=== PATIENT | female | born 1930 | race Caucasian/White ===

== ENCOUNTER 2016-11-18 06:00 | Day surgery (SDC) | payer MEDICARE, OTHER ==
[~2016-11-18 06:00] MED LIST: Lactated Ringers 1,000 ML IV ONE; Sodium Chloride 0.9% 1,000 ML IV SCH; Sodium Chloride 0.9% 5 ML Syringe FLUSH PRN; [UNRECOGNIZED DRUG - OTHER] EYERT SCH
[2016-11-18] MEDS: Cyclopentolate 1% Opth Soln 2 ML Bottle EYERT SCH ×3 (06:04→06:38)
[2016-11-18] MEDS: Phenylephrine 10% Ophth Soln 5 ML Bot EYERT SCH ×3 (06:14→06:49)
[2016-11-18] MEDS ORDERED: Balanced Salt Solution Ophth Irrig 15 ML Bottle EYERT ONE (07:48)
[2016-11-18] MEDS ORDERED: Water For Irrigation,Sterile 1,500 ML Container ONE (07:48)
[2016-11-18] MEDS ORDERED: Tetracaine 0.5% 2 ML Bottle EYEBOTH ONE (07:49)
[2016-11-18] MEDS ORDERED: EPINEPHrine 1:1000 1 MG/ML SDV ONE (07:49)
[2016-11-18] MEDS ORDERED: Balanced Salt Solution Plus Ophth Irrig 500 ML Bottle IOCULAR ONE (07:49)
[2016-11-18] MEDS ORDERED: Carbachol 0.01% Intraocular 1.5 ML Vial EYERT ONE (07:49)
[2016-11-18] MEDS ORDERED: Lidocaine 2% with EPINEPHrine 1:100,000 20 ML MDV INJECT ONE (07:50)
[2016-11-18] MEDS ORDERED: Lidocaine 1% 10 ML MDV INJECT ONE (07:50)
[2016-11-18] MEDS ORDERED: Dexamethasone/Neomycin/Polymyxin B Ophth Oint 3.5 GM Tube EYERT ONE (07:50)
[2016-11-18] MEDS ORDERED: Hyaluronate Sodium 1% 0.85 ML Syringe IOCULAR ONE (07:51)
[2016-11-18 08:22] VITALS: BP 146/55
--- NOTE | 2016-11-18 09:44 | PROC ---
DATE OF PROCEDURE: PHYSICIAN: Kaveh De Paz MD PRE-PROCEDURE DIAGNOSIS: Cataract, right eye. POST-PROCEDURE DIAGNOSIS: Cataract, right eye. PROCEDURE PERFORMED: Phacoemulsification with posterior chamber lens insertion, right eye. FINDINGS: The patient was taken to the operating room where appropriate anesthesia, sedation and monitoring were provided. A retrobulbar block was given on the right side. The eye was massaged and was found to be appropriately soft. The eye and eyelids were then prepped and draped in the usual sterile manner. A lid speculum was placed. A micro sharp blade was used to enter the anterior chamber inside the limbus superior-temporally. Xylocaine was irrigated into the eye at this site. Healon was irrigated into the eye through this site. Then using a 2.85 mm corneal blade an entry was made into the anterior chamber just inside the limbus temporally. Healon was again irrigated into the eye. Then using a cystitome, the anterior capsulorrhexis was created. The lens nucleus was hydrodissected using a 27 gauge cannula and balanced salt solution. The phacoemulsification unit was introduced through the temporal site and the Kevon spatula through the superior temporal site. In so doing, the lens nucleus was phacoemulsified. The cortical fragments of the lens were removed using the irrigation aspiration unit. The posterior capsule was polished. Healon was irrigated into the eye. The posterior chamber lens was inserted and rotated into position inside the capsular bag. The Healon was irrigated out of the eye. Miostat was irrigated into the eye and the pupil rounded nicely. A single interrupted 10-0 Nylon suture was placed through the temporal corneal incision site. Balanced salt solution was irrigated into the eye. The wound was tested and found to be tight. Maxitrol ointment was placed into the patient's right eye. The eyelids were closed and an eye patch and le shield were placed. The patient left the operating room in good condition. /[id number]/MODL
== END 2016-11-18 09:02 | disposition home or self-care (01) ==
LOC: KA.SDS 06:00
PROVIDERS: ATTEND Ophthalmology
DX: H26.9 Unspecified cataract (principal); I10 Essential (primary) hypertension; E78.00 Pure hypercholesterolemia, unspecified; E03.9 Hypothyroidism, unspecified; E11.9 Type 2 diabetes mellitus without complications; Z79.82 Long term (current) use of aspirin; Z79.899 Other long term (current) drug therapy; Z90.49 Acquired absence of other specified parts of digestive tract; Z96.653 Presence of artificial knee joint, bilateral
CPT/HCPCS: 00142; 66984; 82962; 93005; A9270; C1780; J0171; J7030

== ENCOUNTER 2018-09-19 21:11 | Emergency (ER) | payer MEDICARE, OTHER ==
--- NOTE | 2018-09-19 21:45 | EDM.PDOC ---
ED HPI GENERAL MEDICAL PROBLEM - General Chief Complaint: General Stated Complaint: KNEE PAIN Time Seen by Provider: 09/19/18 21:33 Source of Information: Reports: Patient, Significant Other History Limitations: Reports: No Limitations - History of Present Illness INITIAL COMMENTS - FREE TEXT/NARRATIVE: Patient presents with lateral left knee pain that started 5 hours ago while she was watching TV. She describes it as a stabbing pain that lasts only a few seconds. She has had similar pain before but less frequently. She denies any injury. Standing or walking actually feels better. No pain with ROM. 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 Her is concerned about a blood clot since he had one in the past. - Related Data Allergies Allergy/AdvReac Type Severity Reaction Status Date / Time No Known Drug Allergies Allergy NKDA Verified 09/19/18 21:16 Home Meds: Home Meds Aspirin [Halfprin] 81 mg PO BRK 11/17/16 [History] Calcium Carbonate/Vitamin D3 [Calcium 600 + D3 Softgel] 1 each PO DAILY [History] Cyclobenzaprine [Flexeril] 10 mg PO DAILY PRN 11/17/16 [History] Diltiazem HCl [Diltiazem 24Hr ER] 240 mg PO DAILY 11/17/16 [History] Hydroxychloroquine [Plaquenil] 200 mg PO BID 11/17/16 [History] Levothyroxine 150 mcg PO ACBREAKFAST 11/17/16 [History] Losartan/Hydrochlorothiazide [Losartan-HCTZ 100-12.5 MG] 0.5 each PO DAILY 11/17 [History] Lutein/Minerals/Vit A,C & E [Ocuvite] 1 tab PO BID 11/17/16 [History] Methotrexate 7 tab PO Q7D 11/17/16 [History] Vit/Iron Fumarate/FA [ Tablet] 1 each PO DAILY 11/17/16 [ History] Rup Rub 1 applic TOP TID PRN 11/17/16 [History] Vitamin B Complex [B Complex] 1 each PO DAILY 11/17/16 [History] glipiZIDE [Glipizide ER] 1 - 2 tab PO DAILY 11/17/16 [History] metFORMIN HCl [Metformin HCl] 1,000 mg PO BID 11/17/16 [History] traMADol [Ultram] 50 mg PO Q8H PRN 11/17/16 [History] Social & Family History - Caffeine Use Caffeine Use: Reports: Coffee ED ROS GENERAL - Review of Systems Review Of Systems: See Below Constitutional: Denies: Fever, Chills, Malaise, Weakness HEENT: Reports: No Symptoms Respiratory: Denies: Shortness of Breath, Cough Cardiovascular: Denies: Chest Pain, Lightheadedness, Syncope Endocrine: Reports: No Symptoms GI/Abdominal: Reports: No Symptoms : Reports: No Symptoms Musculoskeletal: Reports: Back Pain (chronic). Denies: Neck Pain, Shoulder Pain , Arm Pain Skin: Denies: Cyanosis, Jaundice, Mottled, Pallor, Diaphoresis Neurological: Denies: Confusion, Seizure, Syncope, Trouble Speaking Psychiatric: Denies: Agitation, Anxiety, Confusion ED EXAM, GENERAL - Physical Exam Exam: See Below Exam Limited By: No Limitations General Appearance: Alert, WD/WN, No Apparent Distress Eye Exam: Bilateral Eye: EOMI, Normal Inspection, PERRL Ears: Normal External Exam, Hearing Grossly Normal Nose: Normal Inspection, No Blood Throat/Mouth: Normal Inspection, Normal Lips, Normal Voice, No Airway Compromise Head: Atraumatic, Normocephalic Neck: Full Range of Motion Respiratory/Chest: No Respiratory Distress, Lungs Clear, Normal Breath Sounds Cardiovascular: Regular Rate, Rhythm, No JVD, No Murmur Extremities: Normal Range of Motion, No Pedal Edema, Normal Capillary Refill, Other (No pain with ROM, varus or valgus stress. Some non-specific tenderness at superolateral knee to palpation. No calf swelling or tenderness.). No: Joint Swelling, Arely's Sign, Increased Warmth, Mottled, Pallor, Redness Neurological: Alert, Oriented, Normal Cognition, No Motor/Sensory Deficits Psychiatric: Normal Affect, Normal Mood Skin Exam: Warm, Dry, Intact, Normal Color, No Rash Course - Vital Signs Last Recorded V/S: Last Vital Signs Temp 97.7 F 09/19/18 21:19 Pulse 88 09/19/18 21:19 Resp 20 09/19/18 21:19 BP 179/76 H 09/19/18 21: Pulse Ox 97 09/19/18 21:19 - Orders/Labs/Meds Orders: Active Orders 24 hr Category Date Time Status Knee 3V Lt [CR] Stat Exams 09/19/18 21:23 Ordered - Re-Assessments/Exams Free Text/Narrative Re-Assessment/Exam: 09/19/18 22:13 We discussed her BP which is elevated tonight. She isn't surprised and attributes it to anxiety about coming to the ER along with recently cutting her dose of Losartan in half because it was causing episodes of low BP. She wants to go home and take the other half of her dose and will follow up with her PCP tomorrow morning for recheck. Xrays show no fractures, malalignment, effusion or hardware problems. Discussed findings with patient and she is discharged to home in stable condition. Departure - Departure Time of Disposition: 22:10 Disposition: Home, Self-Care 01 Condition: Good Clinical Impression: Knee pain, left Qualifiers: Chronicity: unspecified Qualified Code(s): M25.562 - Pain in left knee - Discharge Information Referrals: Michelle Carrasco PA-C [Primary Care Provider] - Additional Instructions: 1. Continue your medications as needed for pain. 2. Follow up with your PCP tomorrow as scheduled. 3. Continue weightbearing if not painful or unstable. - My Orders Last 24 Hours: My Active Orders 09/19/18 21:23 Knee 3V Lt [CR] Stat - Assessment/Plan Last 24 Hours: My Active Orders 09/19/18 21:23 Knee 3V Lt [CR] Stat
[2018-09-19 22:13] VITALS: BP 194/84
--- NOTE | 2018-09-20 08:11 | CR ---
[id number] RAD/RAD Knee Left 3V Exam: RAD Knee Left 3V Indication:LEFT KNEE PAIN Comparison: No prior imaging for comparison. Discussion: Total knee arthroplasty. Prosthesis components are in normal alignment. No periprosthetic fracture. Possible small joint effusion with other debris/loose bodies or calcified synovitis in the suprapatellar recess. Bone mineralization is diffusely decreased throughout the knee. Impression: As above. Chip Menjivar MD 09/20/18 0811 Thank you for allowing us to participate in the care of your patient.
== END 2018-09-19 22:20 | disposition home or self-care (01) ==
LOC: KA.ED 21:11
DX: M25.562 Pain in left knee (principal); I10 Essential (primary) hypertension; E11.9 Type 2 diabetes mellitus without complications; E03.9 Hypothyroidism, unspecified; Z79.82 Long term (current) use of aspirin; Z79.899 Other long term (current) drug therapy; Z79.84 Long term (current) use of oral hypoglycemic drugs; Z90.49 Acquired absence of other specified parts of digestive tract
CPT/HCPCS: 73562-LT; 99283

== ENCOUNTER 2019-02-20 00:25 | Emergency (ER) | payer MEDICARE, OTHER ==
[2019-02-20] MEDS: Aspirin 81 MG Tab.Chew PO ONE (00:45)
--- NOTE | 2019-02-20 00:45 | EDM.PDOC ---
ED HPI GENERAL MEDICAL PROBLEM - General Stated Complaint: CHEST PAIN Time Seen by Provider: 02/20/19 00:30 Source of Information: Reports: Patient, Family History Limitations: Reports: No Limitations - History of Present Illness INITIAL COMMENTS - FREE TEXT/NARRATIVE: Patient presents with chest tightness that started about 2330. She often gets GERD and recently started a treatment regimen for H. pylori. She thought this was possibly the cause of her pain but it didn't resolve like usual so she came in. She denies any history of CO or other heart disease. She does have diabetes. CHEST Pain Score (Numeric/FACES): 6 - Related Data Allergies Allergy/AdvReac Type Severity Reaction Status Date / Time No Known Drug Allergies Allergy NKDA Verified 02/20/19 00:40 Home Meds: Home Meds Aspirin [Halfprin] 81 mg PO BRK 11/17/16 [History] Calcium Carbonate/Vitamin D3 [Calcium 600 + D3 Softgel] 1 each PO DAILY [History] Hydroxychloroquine [Plaquenil] 200 mg PO BID 11/17/16 [History] Levothyroxine 150 mcg PO ACBREAKFAST 11/17/16 [History] Losartan/Hydrochlorothiazide [Losartan-HCTZ 100-12.5 MG] 0.5 each PO DAILY 11/17 [History] Lutein/Minerals/Vit A,C & E [Ocuvite] 1 tab PO BID 11/17/16 [History] Methotrexate 8 tab PO Q7D 11/17/16 [History] Vit/Iron Fumarate/FA [ Tablet] 1 each PO DAILY 11/17/16 [ History] Rup Rub 1 applic TOP TID PRN 11/17/16 [History] Vitamin B Complex [B Complex] 1 each PO DAILY 11/17/16 [History] dilTIAZem HCl [Diltiazem 24Hr ER] 240 mg PO DAILY 11/17/16 [History] glipiZIDE [Glipizide ER] 1 - 2 tab PO DAILY 11/17/16 [History] metFORMIN HCl [Metformin HCl] 1,000 mg PO BID 11/17/16 [History] traMADol [Ultram] 50 mg PO Q8H PRN 11/17/16 [History] Amoxicillin 500 mg PO DAILY 02/20/19 [History] Azithromycin [Zithromax] 250 mg PO DAILY 02/20/19 [History] Escitalopram [Lexapro] 10 mg PO DAILY 02/20/19 [History] Omeprazole 20 mg PO DAILY 02/20/19 [History] Past Medical History HEENT History: Reports: Cataract, Other (See Below) Other HEENT History: glasses Cardiovascular History: Reports: Hypertension Gastrointestinal History: Reports: Diverticulosis [facility] [employer] History: Reports: Musculoskeletal History: Reports: Arthritis, Osteoporosis, RA Endocrine/Metabolic History: Reports: Diabetes, Type II, Hypothyroidism Hematologic History: Reports: Iron Deficiency Oncologic (Cancer) History: Reports: Squamous Cell Carcinoma - Infectious Disease History Infectious Disease History: Reports: Chicken Pox, Measles, Rubella - Past Surgical History Cardiovascular Surgical History: Reports: None GI Surgical History: Reports: Cholecystectomy, Colonoscopy, EGD Neurological Surgical History: Reports: None Musculoskeletal Surgical History: Reports: Knee Replacement, Other (See Below) Other Musculoskeletal Surgeries/Procedures:: knee bilateral Social & Family History - Family History Family Medical History: Noncontributory - Caffeine Use Caffeine Use: Reports: Coffee ED ROS GENERAL - Review of Systems Review Of Systems: See Below Constitutional: Denies: Fever, Weakness, Diaphoresis HEENT: Denies: Throat Pain Respiratory: Denies: Shortness of Breath, Cough Cardiovascular: Reports: Chest Pain. Denies: Lightheadedness, Syncope GI/Abdominal: Denies: Abdominal Pain, Diarrhea, Nausea, Vomiting : Reports: No Symptoms Musculoskeletal: Reports: Back Pain (chronic, arthritis). Denies: Neck Pain, Shoulder Pain, Arm Pain Skin: Denies: Cyanosis, Jaundice, Mottled, Pallor, Diaphoresis Neurological: Denies: Confusion, Dizziness, Headache, Seizure, Syncope, Trouble Speaking, Difficulty Walking Psychiatric: Denies: Agitation, Anxiety, Confusion ED EXAM, GENERAL - Physical Exam Exam: See Below Exam Limited By: No Limitations General Appearance: Alert, WD/WN, No Apparent Distress Eye Exam: Bilateral Eye: EOMI, Normal Inspection, PERRL Ears: Normal External Exam, Hearing Grossly Normal Nose: Normal Inspection, No Blood Throat/Mouth: Normal Inspection, Normal Lips, Normal Voice, No Airway Compromise Head: Atraumatic, Normocephalic Neck: Normal Inspection, Supple, Non-Tender, Full Range of Motion. No: Carotid Bruit Respiratory/Chest: No Respiratory Distress, Lungs Clear, Normal Breath Sounds, No Accessory Muscle Use Cardiovascular: Regular Rate, Rhythm, No Edema, No Gallop, No JVD, No Murmur Peripheral Pulses: 2+: Carotid (L), Carotid (R), Radial (L), Radial (R), Dorsalis Pedis (L), Dorsalis Pedis (R) GI/Abdominal: Normal Bowel Sounds, Soft, Non-Tender, No Organomegaly, No Distention, No Abnormal Bruit, No Mass Back Exam: Normal Inspection, Full Range of Motion. No: CVA Tenderness (L), CVA Tenderness (R) Extremities: Normal Inspection, Normal Range of Motion, Non-Tender, No Pedal Edema Neurological: Alert, Oriented, Normal Cognition, No Motor/Sensory Deficits Psychiatric: Normal Affect, Normal Mood Skin Exam: Warm, Dry, Intact, Normal Color, No Rash Course - Vital Signs Last Recorded V/S: Last Vital Signs Temp 98.7 F 02/20/19 00:35 Pulse 68 02/20/19 06:45 Resp 18 02/20/19 06:45 BP 137/57 L 02/20/19 06:45 Pulse Ox 100 02/20/19 00:35 - Orders/Labs/Meds Orders: Active Orders 24 hr Category Date Time Status EKG Documentation Completion [RC] ASDIRECTED Care 02/20/19 00:41 Active Peripheral IV Care [RC] . DIRECTED Care 02/20/19 01:05 Active Chest 2V [CR] Stat Exams 02/20/19 00:40 Taken INR,PT,PROTHROMBIN TIME [COAG] Stat Lab 02/20/19 08:41 Ordered PTT,PARTIAL THROMBOPLSTIN TIME [COAG] Stat Lab 02/20/19 08:41 Ordered Heparin Sodium/D5W Med 02/20/19 08:30 Ordered 25,000 units in 250 ml IV TITRATE Heparin Sodium/D5W Med 02/20/19 08:45 Ordered 25,000 units in 250 ml IV TITRATE Nitroglycerin 25 MG in D5W @ 10 MCG/MIN (250ml) Premix Med 02/20/19 08:30 Ordered Nitroglycerin/D5W [Nitroglycerin 50 MG/D5W 250 ML] 50 mg in 250 ml IV TITRATE Sodium Chloride 0.9% [Saline Flush] Med 02/20/19 01:05 Active 10 ml FLUSH Q8HR PRN Peripheral IV Insertion Adult [OM.PC] Routine Oth 02/20/19 01:05 Ordered EKG 12 Lead [EK] Routine Ther 02/20/19 00:40 Ordered Medication Orders Heparin Sodium/Dextrose () 25,000 units in 250 mls @ 9.417 mls/hr IV TITRATE LIZ; Protocol Nitroglycerin/Dextrose (Nitroglycerin 50 Mg/D5w 250 Ml) 50 mg in 250 mls @ 3 mls/hr IV TITRATE LIZ Heparin Sodium/Dextrose () 25,000 units in 250 mls @ 11.771 mls/hr IV TITRATE LIZ; Protocol Sodium Chloride (Saline Flush) 10 ml FLUSH Q8HR PRN PRN Reason: keep vein open Last Admin: 02/20/19 01:08 Dose: 10 ml Labs: Laboratory Tests 02/20/19 02/20/19 02/20/19 Range/Units 01:02 01:02 06:50 WBC 6.35 (5.00-10.00) 10^3/uL RBC 3.66 L (3.80-5.50) 10^6/uL Hgb 11.5 L (12.0-16.0) g/dL Hct 34.9 L (37.0-47.0) % MCV 95.4 H (82.0-92.0) fL MCH 31.4 H (27.0-31.0) pg MCHC 33.0 (32.0-36.0) g/dL RDW 15.7 H (11.5-14.5) % Plt Count 293 (150-400) 10^3/uL MPV 9.7 (7.4-10.4) fL Immature Gran % (Auto) 0.5 (0.0-5.0) % Neut % (Auto) 68.0 (50.0-70.0) % Lymph % (Auto) 19.5 L (20.0-40.0) % Adams % (Auto) 9.0 H (2.0-8.0) % Eos % (Auto) 2.2 (1.0-3.0) % Baso % (Auto) 0.8 (0.0-1.0) % Immature Gran # (Auto) 0.03 (0.00-0.50) 10^3/uL Neut # (Auto) 4.32 (2.50-7.00) 10^3/uL Lymph # (Auto) 1.24 (1.00-4.00) 10^3/uL Adams # (Auto) 0.57 (0.10-0.80) 10^3/uL Eos # (Auto) 0.14 (0.10-0.30) 10^3/uL Baso # (Auto) 0.05 (0.00-0.10) 10^3/uL Sodium 140 (136-145) mmol/L Potassium 3.8 (3.3-5.3) mmol/L Chloride 102 (98-115) mmol/L Carbon Dioxide 26.3 (21.0-32.0) mmol/L Anion Gap 15.5 H (5-15) mmol/L BUN 15 (6-25) mg/dL Creatinine 0.58 (0.51-1.17) mg/dL Est Cr Clr Drug Dosing 57.59 mL/min Estimated GFR (MDRD) > 60 mL/min Glucose 128 H (75 - 99) mg/dL Calcium 8.5 L (8.7-10.3) mg/dL Troponin I < 0.04 0.11 H* (0.00-0.070) ng/mL Meds: Medications Generic Name Dose Route Start Last Admin Trade Name Freq PRN Reason Stop Dose Admin Heparin Sodium/Dextrose 25,000 units in 250 mls @ 9.417 mls/hr 02/20/19 08:30 IV TITRATE LIZ Protocol 12 UNITS/KG/HR Nitroglycerin/Dextrose 50 mg in 250 mls @ 3 mls/hr 02/20/19 08:30 Nitroglycerin 50 Mg/D5w 250 Ml IV TITRATE LIZ 10 MCG/MIN Heparin Sodium/Dextrose 25,000 units in 250 mls @ 11.771 mls/hr 02/20/19 08: 45 IV TITRATE LIZ Protocol 15 UNITS/KG/HR Sodium Chloride 10 ml 02/20/19 01:05 02/20/19 01:08 Saline Flush FLUSH 10 ml Q8HR PRN Administration keep vein open Discontinued Medications Generic Name Dose Route Start Last Admin Trade Name Freq PRN Reason Stop Dose Admin Al Hydroxide/Mg Hydroxide 45 ml 02/20/19 01:13 02/20/19 01:31 Gi Cocktail PO 02/20/19 01:14 45 ml ONETIME ONE Administration Aspirin 324 mg 02/20/19 00:40 02/20/19 00:45 Aspirin PO 02/20/19 00:41 324 mg ONETIME ONE Administration Aspirin Confirm 02/20/19 00:43 02/20/19 00:54 Aspirin Administered 02/20/19 00:44 Not Given Dose 324 mg .ROUTE .STK-MED ONE Sodium Chloride Confirm 02/20/19 08:56 Normal Saline Administered 02/20/19 08:57 Dose 1,000 mls @ as directed .ROUTE .STK-MED ONE Nitroglycerin 1 gm 02/20/19 00:40 02/20/19 00:50 Nitro-Bid 2% TOP 02/20/19 00:41 1 gm ONETIME ONE Administration Nitroglycerin Confirm 02/20/19 00:43 02/20/19 00:54 Nitro-Bid 2% Administered 02/20/19 00:44 Not Given Dose 1 gm .ROUTE .STK-MED ONE Tramadol HCl 50 mg 02/20/19 07:46 02/20/19 08:01 Ultram PO 02/20/19 07:47 50 mg ONETIME ONE Administration - Re-Assessments/Exams Free Text/Narrative Re-Assessment/Exam: 02/20/19 01:08 Aspirin and Nitro paste given right away. Chest heaviness improved significantly but not completely resolved. 02/20/19 02:22 The nitro paste help a little but the GI cocktail helped more. Patient is feeling significantly improved but still feels a very slight chest pressure. EKG, CXR and troponin are normal. Will keep for serial troponin and discharge to home if negative and patient stable. 02/20/19 08:39 Second troponin was 0.11. Patient was fairly comfortable through the night but still has the mild chest pressure. Discussed case with Dr. Serra (card) and Dr. Reyes (hosp) at [facility] who accepted for transfer, recommending heparin drip and nitro drip. She will likely go to [facility] tomorrow and they will evaluate and monitor today. Departure - Departure Time of Disposition: 08:38 Disposition: DC/Tfer to Acute Hospital 02 Reason for Transfer *Q: Other Condition: Good Clinical Impression: Acute coronary syndrome, NSTEMI (non-ST elevated myocardial infarction) Chest pain Qualifiers: Chest pain type: unspecified Qualified Code(s): R07.9 - Chest pain, unspecified Referrals: Michelle Carrasco PA-C [Primary Care Provider] - Forms: ED Department Discharge Additional Instructions: 1. Follow up with your PCP on Thursday for recheck or if worsening return to ER. - My Orders Last 24 Hours: My Active Orders 02/20/19 00:40 Chest 2V [CR] Stat EKG 12 Lead [EK] Routine 02/20/19 00:41 EKG Documentation Completion [RC] ASDIRECTED 02/20/19 01:05 Peripheral IV Care [RC] . DIRECTED Sodium Chloride 0.9% [Saline Flush] 10 ml FLUSH Q8HR PRN Peripheral IV Insertion Adult [OM.PC] Routine 02/20/19 08:30 Heparin Sodium/D5W 25,000 units in 250 ml IV TITRATE Nitroglycerin 25 MG in D5W @ 10 MCG/MIN (250ml) Premix Nitroglycerin/D5W [ Nitroglycerin 50 MG/D5W 250 ML] 50 mg in 250 ml IV TITRATE 02/20/19 08:41 INR,PT,PROTHROMBIN TIME [COAG] Stat PTT,PARTIAL THROMBOPLSTIN TIME [COAG] Stat 02/20/19 08:45 Heparin Sodium/D5W 25,000 units in 250 ml IV TITRATE - Assessment/Plan Last 24 Hours: My Active Orders 02/20/19 00:40 Chest 2V [CR] Stat EKG 12 Lead [EK] Routine 02/20/19 00:41 EKG Documentation Completion [RC] ASDIRECTED 02/20/19 01:05 Peripheral IV Care [RC] . DIRECTED Sodium Chloride 0.9% [Saline Flush] 10 ml FLUSH Q8HR PRN Peripheral IV Insertion Adult [OM.PC] Routine 02/20/19 08:30 Heparin Sodium/D5W 25,000 units in 250 ml IV TITRATE Nitroglycerin 25 MG in D5W @ 10 MCG/MIN (250ml) Premix Nitroglycerin/D5W [ Nitroglycerin 50 MG/D5W 250 ML] 50 mg in 250 ml IV TITRATE 02/20/19 08:41 INR,PT,PROTHROMBIN TIME [COAG] Stat PTT,PARTIAL THROMBOPLSTIN TIME [COAG] Stat 02/20/19 08:45 Heparin Sodium/D5W 25,000 units in 250 ml IV TITRATE
[2019-02-20] MEDS: Nitroglycerin 2% Oint 1 GM UD Packet TOP ONE (00:50)
[2019-02-20] MEDS: Nitroglycerin 2% Oint 1 GM UD Packet ONE (00:54)
[2019-02-20] MEDS: Aspirin 81 MG Tab.Chew ONE (00:54)
[2019-02-20] MEDS: Sodium Chloride 0.9% 10 ML Syringe FLUSH PRN (01:08)
[2019-02-20] MEDS: GI Cocktail 45 ML BOTTLE PO ONE (01:31)
[2019-02-20 01:42] LABS: ANION GAP 15.5 mmol/L (5-15); CHLORIDE,CL 102 mmol/L (98-115); SODIUM,NA 140 mmol/L (136-145)
[2019-02-20] MEDS: traMADol 50 MG Tab PO ONE (08:01)
[2019-02-20 08:22] VITALS: BP 137/57
[2019-02-20] MEDS ORDERED: Heparin Sodium/D5W 25,000 UNITS/250 ML BAG IV SCH (08:30)
[2019-02-20] MEDS ORDERED: Sodium Chloride 0.9% 1,000 ML IV SCH (09:00)
[2019-02-20] MEDS: Heparin Sodium/D5W 25,000 UNITS/250 ML BAG IV SCH (09:10)
--- NOTE | 2019-02-20 10:28 | CR ---
[id number] RAD/RAD Chest PA And Lateral EXAM: FRONTAL AND LATERAL CHEST INDICATION: Chest pain. COMPARISON: February 15, 2019. DISCUSSION: Chronic obstructive pulmonary disease. Mild linear atelectasis or scarring the lung bases. There is mild prominence of the right hilum which may relate to incomplete inspiratory effort. Follow-up examination may be useful to further exclude other underlying pathology. No infiltrates are identified. Borderline central vascular congestion with normal heart size. IMPRESSION: 1. The heart is normal in size, but there is borderline central vascular congestion. 2. Mild bibasilar scarring or atelectasis. Andrea Ba MD 02/20/19 1027 Thank you for allowing us to participate in the care of your patient.
[2019-02-21] MEDS: Sodium Chloride 0.9% 1,000 ML ONE (12:16)
== END 2019-02-20 09:30 ==
LOC: KA.ED 00:25
DX: I21.4 Non-ST elevation (NSTEMI) myocardial infarction (principal); I24.9 Acute ischemic heart disease, unspecified; I10 Essential (primary) hypertension; M06.9 Rheumatoid arthritis, unspecified; E11.9 Type 2 diabetes mellitus without complications; M19.90 Unspecified osteoarthritis, unspecified site; Z90.49 Acquired absence of other specified parts of digestive tract; Z79.84 Long term (current) use of oral hypoglycemic drugs; Z79.899 Other long term (current) drug therapy; Z79.82 Long term (current) use of aspirin
CPT/HCPCS: 36415; 71046; 80048; 84484; 85025; 85610; 85730; 93005; 96365; 96368; 99285-25; A9270-GY; J1644

== ENCOUNTER 2019-05-15 14:16 | Emergency (ER) | payer MEDICARE, OTHER ==
[2019-05-15 14:38] VITALS: BP 145/65
[2019-05-15] MEDS ORDERED: cefTRIAXone 1 GM Vial IM ONE (14:41)
[2019-05-15] MEDS ORDERED: Lidocaine 1% 20 ML MDV ONE (14:44)
[2019-05-15] MEDS ORDERED: Sulfamethoxazole/Trimethoprim 800-160 MG Tab PO ONE ×2 (14:46→14:53)
--- NOTE | 2019-05-15 15:00 | EDM.PDOC ---
ED HPI GENERAL MEDICAL PROBLEM - General Chief Complaint: Bite:Animal, Insect Stated Complaint: INSCENT BITE?? Time Seen by Provider: 05/15/19 14:25 Source of Information: Reports: Patient, Family (dtr) History Limitations: Reports: No Limitations - History of Present Illness INITIAL COMMENTS - FREE TEXT/NARRATIVE: Patient presents with redness and swelling of right cheek. She says she first noticed this 4 days ago but it is noticeably worse today. She had been in the garden but isn't aware of any insect bites although very possible. At first she wondered if it could be from her teeth or gums but says they aren't painful. No fever. Treatments PEACE OFFICER: Reports: Other (see below) Other Treatments PEACE OFFICER: Tramadol - Related Data Allergies Allergy/AdvReac Type Severity Reaction Status Date / Time No Known Drug Allergies Allergy NKDA Verified 05/15/19 14:40 Home Meds: Home Meds Aspirin [Halfprin] 81 mg PO BRK 11/17/16 [History] Calcium Carbonate/Vitamin D3 [Calcium 600 + D3 Softgel] 1 each PO DAILY [History] Hydroxychloroquine [Plaquenil] 200 mg PO BID 11/17/16 [History] Levothyroxine 150 mcg PO ACBREAKFAST 11/17/16 [History] Losartan/Hydrochlorothiazide [Losartan-HCTZ 100-12.5 MG] 0.5 each PO DAILY 11/17 [History] Lutein/Minerals/Vit A,C & E [Ocuvite] 1 tab PO BID 11/17/16 [History] Methotrexate 8 tab PO Q7D 11/17/16 [History] Vit/Iron Fumarate/FA [ Tablet] 1 each PO DAILY 11/17/16 [ History] Rup Rub 1 applic TOP TID PRN 11/17/16 [History] Vitamin B Complex [B Complex] 1 each PO DAILY 11/17/16 [History] dilTIAZem HCl [Diltiazem 24Hr ER] 240 mg PO DAILY 11/17/16 [History] glipiZIDE [Glipizide ER] 1 - 2 tab PO DAILY 11/17/16 [History] metFORMIN HCl [Metformin HCl] 1,000 mg PO BID 11/17/16 [History] traMADol [Ultram] 50 mg PO Q8H PRN 11/17/16 [History] Amoxicillin 500 mg PO DAILY 02/20/19 [History] Azithromycin [Zithromax] 250 mg PO DAILY 02/20/19 [History] Escitalopram [Lexapro] 10 mg PO DAILY 02/20/19 [History] Omeprazole 20 mg PO DAILY 02/20/19 [History] Past Medical History HEENT History: Reports: Cataract, Other (See Below) Other HEENT History: glasses Cardiovascular History: Reports: Hypertension Gastrointestinal History: Reports: Diverticulosis LOGISTICS LEAD History: Reports: Musculoskeletal History: Reports: Arthritis, Osteoporosis, RA Endocrine/Metabolic History: Reports: Diabetes, Type II, Hypothyroidism Hematologic History: Reports: Iron Deficiency Oncologic (Cancer) History: Reports: Squamous Cell Carcinoma Dermatologic History: Reports: Cellulitis Other Dermatologic History: cellulitis R cheek 05/2019 - Infectious Disease History Infectious Disease History: Reports: Chicken Pox, Measles, Rubella - Past Surgical History Cardiovascular Surgical History: Reports: None GI Surgical History: Reports: Cholecystectomy, Colonoscopy, EGD Neurological Surgical History: Reports: None Musculoskeletal Surgical History: Reports: Knee Replacement, Other (See Below) Other Musculoskeletal Surgeries/Procedures:: knee bilateral Social & Family History - Family History Family Medical History: Noncontributory - Caffeine Use Caffeine Use: Reports: Coffee ED ROS GENERAL - Review of Systems Review Of Systems: See Below Constitutional: Denies: Fever, Chills, Malaise, Weakness HEENT: Denies: Dental Pain, Ear Pain, Sinus Problem Respiratory: Denies: Shortness of Breath, Cough Cardiovascular: Denies: Chest Pain, Lightheadedness, Syncope Endocrine: Denies: Fatigue GI/Abdominal: Denies: Abdominal Pain, Diarrhea, Vomiting : Reports: Dysuria (she said just very mild for a couple days). Denies: Flank Pain Musculoskeletal: Reports: No Symptoms Skin: Denies: Cyanosis, Jaundice, Mottled, Pallor, Diaphoresis Neurological: Denies: Confusion, Dizziness, Seizure, Syncope, Trouble Speaking, Difficulty Walking Psychiatric: Denies: Agitation, Anxiety, Confusion ED EXAM, ANIMAL BITE - Physical Exam Exam: See Below Exam Limited By: No Limitations General Appearance: Alert, WD/WN, No Apparent Distress Ears: Normal External Exam, Normal Canal, Hearing Grossly Normal, Normal TMs Nose: Normal Inspection, No Blood Throat/Mouth: Normal Lips, Normal Gums, Normal Oropharynx, Normal Voice, No Airway Compromise, Other (Palpation of right cheek, inside and outside, tender but no erythema or tenderness of teeth or gums, upper or lower.) Head: Atraumatic, Normocephalic, Facial Swelling (right cheek erythema, swelling from mid-cheek (at level of nostril opening) extending down past mandible into right lateral neck, anteriorly to within 1 cm of nose and posterior to within 4-5 cm of anterior right ear. There is induration in the central 2/3 of this region down to mandible but not the neck. A picture is taken.) Neck: Supple, Non-Tender, Full Range of Motion, Other (erythema and mild swelling right-anterior neck from midline to below anterior ear. No induration. ) Respiratory/Chest: No Respiratory Distress, Lungs Clear, Normal Breath Sounds, No Accessory Muscle Use Cardiovascular: Regular Rate, Rhythm, No Murmur GI/Abdominal: Normal Bowel Sounds, Soft, Non-Tender, No Organomegaly, No Distention Back Exam: Normal Inspection, Full Range of Motion. No: CVA Tenderness (L), CVA Tenderness (R) Extremities: Normal Inspection, Normal Range of Motion, Non-Tender, No Pedal Edema Neurological: Alert, Oriented, Normal Cognition, No Motor/Sensory Deficits Psychiatric: Normal Affect, Normal Mood Skin Exam: Normal Color, Warm/Dry Lymphadenopathy: Bilateral: No Adenopathy Course - Vital Signs Last Recorded V/S: Last Vital Signs Temp 97.5 F 05/15/19 14:28 Pulse 72 05/15/19 14:28 Resp 20 05/15/19 14:28 BP 145/65 H 05/15/19 14:28 Pulse Ox 97 05/15/19 14:28 - Orders/Labs/Meds Meds: Medications Discontinued Medications Generic Name Dose Route Start Last Admin Trade Name Charanjit PRN Reason Stop Dose Admin Ceftriaxone Sodium 1 gm 05/15/19 14:41 05/15/19 14:51 Rocephin IM 05/15/19 14:42 1 gm ONETIME ONE Administration Lidocaine HCl Confirm 05/15/19 14:44 05/15/19 14:54 Xylocaine 1% Administered 05/15/19 14:45 20 ml Dose Administration 20 ml .ROUTE .STK-MED ONE Trimethoprim/Sulfamethoxazole 1 tab 05/15/19 14:46 Septra Ds PO 05/15/19 14:47 ONETIME ONE Trimethoprim/Sulfamethoxazole 2 tab 05/15/19 14:53 Septra Ds PO 05/15/19 14:54 ONETIME ONE - Re-Assessments/Exams Free Text/Narrative Re-Assessment/Exam: 05/15/19 15:03 Discussed findings and treatment plan. Will cover for MSSA and MRSA. She has used Sulfa before without any problems and has no allergies to any antibiotics. I reviewed her last potassium from two months ago to see if she was borderline hyperkalemic before starting a sulfa but it was 3.8. Short course shouldn't be a concern with her Losartan. She will return tomorrow for a second injection of Rocephin and then begin Keflex on Thursday, possibly after seeing Michelle in clinic. The first doses of Rocephin and Bactrim were administered today in ER and doses for tomorrow of Bactrim were sent home with patient since it is a holiday for pharmacy. 05/15/19 15:25 I feel outpatient treatment for this should be very successful but if worsening can consider admission. She will recheck within 48 hours or sooner if any worsening. Patient discharged to home in stable condition. Departure - Departure Time of Disposition: 14:59 Disposition: Home, Self-Care 01 Condition: Good Clinical Impression: Cellulitis of external cheek, right - Discharge Information Instructions: Cellulitis, Adult, [id number] Referrals: Michelle Carrasco PA-C [Primary Care Provider] - Additional Instructions: 1. Drink plenty of water. 2. Take the antibiotics as directed. 3. Tomorrow return to hospital nurses station for the second injection of Rocephin. 4. Thursday morning follow up with your PCP for recheck. 5. Return to ER if worsening.
== END 2019-05-15 15:25 | disposition home or self-care (01) ==
LOC: KA.ED 14:16
DX: L03.211 Cellulitis of face (principal); I10 Essential (primary) hypertension; E11.9 Type 2 diabetes mellitus without complications; E03.9 Hypothyroidism, unspecified; M06.9 Rheumatoid arthritis, unspecified; Z79.82 Long term (current) use of aspirin; Z79.84 Long term (current) use of oral hypoglycemic drugs; Z79.899 Other long term (current) drug therapy
CPT/HCPCS: 96372; 99282; A9270-GY; J0696; J2001